=== PATIENT | male | born 1955 | race Two or more races ===

== ENCOUNTER 2017-01-24 12:23 | Inpatient (IN) | payer BC ==
[~2017-01-24] VITALS: Ht 162.6 cm; Wt 71.3 kg
[2017-01-24 13:04] LABS: BASO # 0.1 x10^3/uL (0.0-0.2); BASO % 2 % (0-3); EOS # 0.1 x10^3/uL (0.0-0.7); EOS % 2 % (0-3); HEMATOCRIT 30.5 % (39.0-53.0); HEMOGLOBIN 10.2 g/dL (13.0-17.5); LYMPH # 0.8 x10^3/uL (1.0-4.8); LYMPH % 28 % (24-48); MEAN CORPUSCULAR HEMOGLOBIN 33 pg (25-35); MEAN CORPUSCULAR HGB CONC 33 g/dL (31-37); MEAN CORPUSCULAR VOLUME 98 fL (79-100); MONO # 0.4 x10^3/uL (0.0-1.1); MONO % 14 % (0-9); NEUT # 1.6 x10^3uL (1.8-7.7); NEUT % 54 % (31-73); PLATELET COUNT 33 x10^3/uL (140-400); RED BLOOD COUNT 3.11 x10^6/uL (4.30-5.70); RED CELL DISTRIBUTION WIDTH 21.1 % (11.5-14.5); WHITE BLOOD COUNT 2.9 x10^3/uL (4.0-11.0)
[2017-01-24 13:14] LABS: ALBUMIN 2.4 g/dL (3.4-5.0); ALBUMIN/GLOBULIN RATIO 0.4 (1.0-1.7); CALCIUM 7.9 mg/dL (8.5-10.1); CREATININE 0.8 mg/dL (0.7-1.3); GFR 98.6; POTASSIUM 4.1 mmol/L (3.5-5.1); TOTAL BILIRUBIN 2.1 mg/dL (0.2-1.0)
[2017-01-24] MEDS ORDERED: ONDANSETRON PF 4 MG/2 ML VIAL. IV ONE (13:15)
[2017-01-24] MEDS ORDERED: IV DEXTROSE 5% - 0.9 % NACL 500 ML IV ONE (13:15)
[2017-01-24] MEDS ORDERED: THIAMINE 100 MG in IV NORMAL SALINE 50ML 50 ML IV ONE (13:15)
--- NOTE | 2017-01-24 13:40 | RAD ---
CT of the head without contrast, 01/24/2017: History: Altered mental status, confusion, alcoholism There is moderate cerebral atrophy. The ventricles are within normal limits in size. There is no shift of the midline structures. There is no evidence of acute intracranial hemorrhage or mass effect. IMPRESSION: 1. Cerebral atrophy. 2. No acute intracranial abnormality is detected. PQRS Compliance Statement: One or more of the following individualized dose reduction techniques were utilized for this examination: 1. Automated exposure control 2. Adjustment of the mA and/or kV according to patient size 3. Use of iterative reconstruction technique
[2017-01-24 13:56] LABS: BILIRUBIN,URINE SMALL (NEG); CLARITY,URINE CLOUDY; COLOR,URINE AMBER; GLUCOSE,URINE NEG (NEG); UROBILINOGEN,URINE 8 mg/dL (0.2 mg/dL)
[2017-01-24 13:57] LABS: BACTERIA,URINE MOD /HPF (0-FEW); NITRITE,URINE POS (NEG); SQUAMOUS EPITHELIAL CELL,UR FEW /LPF
[2017-01-24] MEDS ORDERED: PROP40TA PO (13:58)
[2017-01-24] MEDS ORDERED: INSU100V13 SQ (13:58)
[2017-01-24] MEDS ORDERED: INSU100C4 SQ (13:58)
[2017-01-24 14:09] LABS: PLT ESTIMATE DECREASED (ADEQUATE)
[2017-01-24 14:10] LABS: ANISOCYTOSIS SLIGHT; HYPOCHROMIA SLIGHT; MICROCYTOSIS SLIGHT; SCHISTOCYTES OCC; SPHEROCYTES FEW; TARGET CELLS OCC; TEAR DROP CELLS OCC
[2017-01-24] MEDS ORDERED: MVI, ADULT NO.4 WITH VIT K 10 ML, FOLIC ACID SYRINGE for ER 1 MG, THIAMINE 100 MG in IV... IV ONE ×4 (14:15)
[2017-01-24] MEDS ORDERED: ESOM20CA PO (14:55)
[2017-01-24 15:03] VITALS: BP 163/80
[2017-01-24 15:04] VITALS: BP 163/80
[2017-01-24] MEDS ORDERED: CLONIDINE HCL 0.1 MG TABLET PO PRN (15:30)
[2017-01-24] MEDS ORDERED: LORAZEPAM 2 MG/ML VIAL IV PRN ×2 (15:30)
[2017-01-24] MEDS ORDERED: DIPHENHYDRAMINE 50 MG/ML VIAL IVP PRN (15:30)
[2017-01-24] MEDS ORDERED: PANTOPRAZOLE IV PUSH 40 MG VIAL. IVP SCH (15:45)
[2017-01-24] MEDS ORDERED: CEFTRIAXONE SODIUM 1 GM in IV NORMAL SALINE 50ML 50 ML IV SCH (16:00)
--- NOTE | 2017-01-24 16:17 | ED.ADGEN ---
Past History Past Medical History: Alcoholism, Diabetes, Hypertension, Liver Disease, Pancreatitis, Other Past Surgical History: Other Alcohol Use: Heavy Drug Use: None Adult General Chief Complaint Chief Complaint intermittent altered mental status, nausea, vomiting HPI HPI Patient is a 61 year old male who presents with son for intermittently not acting like him self. Pt has had anger outburst and using profanity, which is not like him. He is a near-daily drinker, drinking 2 bottles a wine a day, last drinking was yesterday. Pt has known cirrhosis of the liver. No known falls or trauma. Unsure if pt's color is more yellow than normal. Pt was seen in PCP office earlier today and directed to the ED. Pt's had nausea and vomiting today, no bloody or bilious vomiting. Denies dark/tarry stools. Denies abdominal pain, cough or shortness of breath. Review of Systems Review of Systems Constitutional: Denies fever or chills [] Eyes: Denies change in visual acuity, redness, or eye pain [] HENT: Denies nasal congestion or sore throat [] Respiratory: Denies cough or shortness of breath [] Cardiovascular: Denies chest pain GI: per hpi : Denies dysuria , reports difficulty completing stream Musculoskeletal: Denies back pain or joint pain [] Integument: Denies rash or skin lesions [] Neurologic: Denies headache, focal weakness or sensory changes [] Current Medications Current Medications Current Medications Medications (Trade) Dose Ordered Sig/Tone Start Time Stop Time Status Last Admin Dose Admin Dextrose/Sodium Chloride 500 ml @ 0 mls/hr 1X ONCE 01/24/17 13:15 01/24/17 13:16 DC 01/24/17 13:12 500 MLS/HR Ondansetron HCl (Zofran) 4 mg 1X ONCE 01/24/17 13:15 01/24/17 13:16 DC 01/24/17 13:11 4 MG Thiamine HCl/ Sodium Chloride (Iv Sodium Chloride 0.9% 50ml) 51 ml @ 102 mls/hr 1X ONCE 01/24/17 13:15 01/24/17 13:44 DC 01/24/17 13:00 102 MLS/HR Allergies Allergies Allergies Coded Allergies Type Severity Reaction Last Updated Verified No Known Drug Allergies 01/24/17 No Physical Exam Physical Exam Constitutional: Well developed, well nourished, no acute distress, non-toxic appearance. appears slightly jaundiced HENT: Normocephalic, atraumatic, bilateral external ears normal, oropharynx moist, no oral exudates, nose normal. [] Eyes: PERRLA, EOMI, scleral icteric, no discharge. [] Neck: Normal range of motion, no tenderness, supple, no stridor. [] Cardiovascular:Heart rate regular with regular rhythm, no murmur [] Lungs & Thorax: Bilateral breath sounds clear to auscultation, no wheeze or crackles Abdomen: Bowel sounds normal, soft, no tenderness Skin: Warm, dry, no erythema, no rash. [] Back: No tenderness, no CVA tenderness. [] Extremities: No tenderness, no cyanosis, no clubbing, ROM intact, no edema. [] Neurologic: Alert and oriented X 3, normal motor function, normal sensory function, no focal deficits noted. [] Current Patient Data Vital Signs Vital Signs Date Time Temp Pulse Resp B/P Pulse Ox O2 Delivery O2 Flow Rate FiO2 01/24/17 12:25 98.0 70 18 97 Room Air Lab Results Laboratory Tests Test 01/24/17 12:43 01/24/17 13:36 White Blood Count 2.9x10^3/uL (4.0-11.0) L Red Blood Count 3.11x10^6/uL (4.30-5.70) L Hemoglobin 10.2g/dL (13.0-17.5) L Hematocrit 30.5% (39.0-53.0) L Mean Corpuscular Volume 98fL (79-100) Mean Corpuscular Hemoglobin 33pg (25-35) Mean Corpuscular Hemoglobin Concent 33g/dL (31-37) Red Cell Distribution Width 21.1% (11.5-14.5) H Platelet Count 33x10^3/uL (140-400) L Neutrophils (%) (Auto) 54% (31-73) Lymphocytes (%) (Auto) 28% (24-48) Monocytes (%) (Auto) 14% (0-9) H Eosinophils (%) (Auto) 2% (0-3) Basophils (%) (Auto) 2% (0-3) Neutrophils # (Auto) 1.6x10^3uL (1.8-7.7) L Lymphocytes # (Auto) 0.8x10^3/uL (1.0-4.8) L Monocytes # (Auto) 0.4x10^3/uL (0.0-1.1) Eosinophils # (Auto) 0.1x10^3/uL (0.0-0.7) Basophils # (Auto) 0.1x10^3/uL (0.0-0.2) Platelet Estimate Decreased (ADEQUATE) Hypochromasia Slight Anisocytosis Slight Microcytosis Slight Spherocytes Few Target Cells Occ Tear Drop Cells Occ Schistocytes Occ Sodium Level 140mmol/L (136-145) Potassium Level 4.1mmol/L (3.5-5.1) Chloride Level 105mmol/L (98-107) Carbon Dioxide Level 27mmol/L (21-32) Anion Gap 8 (6-14) Blood Urea Nitrogen 11mg/dL (8-26) Creatinine 0.8mg/dL (0.7-1.3) Estimated GFR (Cockcroft-Gault) 98.6 BUN/Creatinine Ratio 14 (6-20) Glucose Level 189mg/dL (70-99) H Calcium Level 7.9mg/dL (8.5-10.1) L Total Bilirubin 2.1mg/dL (0.2-1.0) H Aspartate Amino Transferase (AST) 62U/L (15-37) H Alanine Aminotransferase (ALT) 31U/L (16-63) Alkaline Phosphatase 249U/L (46-116) H Ammonia 80mcmol/L (11-34) H Total Protein 8.0g/dL (6.4-8.2) Albumin 2.4g/dL (3.4-5.0) L Albumin/Globulin Ratio 0.4 (1.0-1.7) L Urine Collection Type Unknown Urine Color [place] Urine Clarity Cloudy Urine pH 7.0 Urine Specific [place] 1.020 Urine Protein 100 mg/dl (NEG-TRACE) Urine Glucose (UA) Negmg/dL (NEG) Urine Ketones (Stick) Tracemg/dL (NEG) Urine Blood Mod (NEG) Urine Nitrite Pos (NEG) Urine Bilirubin Small (NEG) Urine Urobilinogen Dipstick 8mg/dL (0.2 mg/dL) Urine Leukocyte Esterase Trace (NEG) Urine RBC 1-2/HPF (0-2) Urine WBC 5-10/HPF (0-4) Urine Squamous Epithelial Cells Few/LPF Urine Bacteria Mod/HPF (0-FEW) EKG EKG [] Radiology/Procedures Radiology/Procedures CT head: CT of the head without contrast, 01/24/2017: History: Altered mental status, confusion, alcoholism There is moderate cerebral atrophy. The ventricles are within normal limits in size. There is no shift of the midline structures. There is no evidence of acute intracranial hemorrhage or mass effect. IMPRESSION: 1. Cerebral atrophy. 2. No acute intracranial abnormality is detected. DICTATED AND SIGNED BY: KIARRA MARTINS MD DATE: 01/24/17 [id number] CC: JONEL TANNER MD ~ Course & Med Decision Making Course & Med Decision Making Pertinent Labs and Imaging studies reviewed. (See chart for details) Pt given d5NS, zofran, Thiamine IV. Pt's ammonia level elevated, CT head negative. Pt is not on lactulose at this time. Will admit for ongoing treatment and monitor for withdrawal. Pt accepted to tele by Dr. Her Final Impression Final Impression Hepatic encephalopathy Liver disease Alcohol abuse[] Problems: Dragon Disclaimer Dragon Disclaimer This electronic medical record was generated, in whole or in part, using a voice recognition dictation system. JONEL TANNER MD Jan 24, 2017 16:17
[2017-01-24] MEDS ORDERED: DEXTROSE 50% 25 GM / 50ML DISP.SYRIN. IV PRN (17:30)
[2017-01-24] MEDS: LACTULOSE 20 GM/30 ML SOLUTION. PO SCH (17:48)
[2017-01-24 18:52] VITALS: BP 165/79
[2017-01-24] MEDS: PROPRANOLOL 20 MG TABLET. PO SCH (20:18)
[2017-01-24] MEDS: INSULIN ASPART 300 UNITS/3 ML INSULN.PEN SQ SCH (20:20)
[2017-01-24 21:46] LABS: BILIRUBIN,URINE NEG (NEG); CLARITY,URINE CLOUDY; COLOR,URINE AMBER; GLUCOSE,URINE NEG (NEG); NITRITE,URINE POS (NEG); UROBILINOGEN,URINE 4 mg/dL (0.2 mg/dL)
[2017-01-24 22:04] LABS: BACTERIA,URINE 0 /HPF (0-FEW); RBC,URINE >40 /HPF (0-2); SQUAMOUS EPITHELIAL CELL,UR FEW /LPF
[2017-01-24 22:27] VITALS: BP 145/70
--- NOTE | 2017-01-24 22:51 | ACF ---
Admission Criteria Forms LIVER DISEASE COMPLICATIONS Clinical Indications for Admission to Inpatient Care (Place 'X' for any and all applicable criteria): Admission is indicated for patient with ANY ONE of the following(1)(2)(3)(4): [ ]I. Inpatient admission required rather than observation care because of ANY ONE of the following: [ ]a) Hemodynamic instability that is severe or persistent [ ]b) Severe electrolyte abnormalities requiring inpatient care [ ]c) Respiratory compromise that is severe or persistent [ ]d) Coagulation abnormal that is severe or persistent [ ]e) Severe pain requiring acute inpatient management [ ]f) Renal insufficiency that is severe or worsening [ ]g) Metabolic abnormalities (e.g., vomiting, hypoglycemia, acidosis) that are severe or persistent [ ]h) Hypovolemia or hypervolemia that is severe or persistent [ ]i) Absent bowel sounds with complete ileus(2) [ ]j) Signs of intestinal obstruction or peritonitis[A] [ ]k) IV fluid to replace significant ongoing losses (>3 L/m2 per day) [ ]l) Continuous IV infusion of anticoagulation, platelet inhibitor, vasoactive, or antiarrhythmic medication [ ]m) Percutaneous or open drainage (e.g., abscess, biliary tract) procedures [ ]n) Parenteral nutrition regimen that must be implemented on inpatient basis [ ]o) Other condition treatment or monitoring requiring inpatient admission [ ]II. Infected hepatic hydrothorax (eg, empyema) [ ]III. Hepatorenal syndrome (eg, elevated. creatinine with adequate volume status and negative evaluation for other cause)(8) [ ]IV. Spontaneous bacterial peritonitis [ ]V. Suspected infected ascites as indicated by ANY ONE of the following: [ ]a) Temp >100 degrees F (37.8 C ) [ ]b) High WBC count [ ]c) Abdominal pain or tenderness not relieved by paracentesis [X]. New-onset or worsening hepatic encephalopathy(7) [ ]VII. Suspected fulminant hepatic failure (e.g., acute coagulopathy with hepatic encephalopathy or acute elevation of hepatic transaminases to more than 15 times baseline)(4) [ ]VIII. Acute hepatitis (e.g., ALT and AST at least 3 times baseline) with coagulopathy or severe jaundice as indicated by ANY ONE of the following(9)(10): [ ]a) Bilirubin >20 mg/dL (342 moles/L)(11) [ ]b) Acute elevation of PT to >50% above normal or INR >1.5 [ ] IX. Treatment of injury from hepatotoxin (e.g., acetaminophen) that requires inpatient monitoring [ ] X. Acute fatty liver of Extended stay beyond goal length of stay may be needed for(3)(7): [ ]a) Hepatorenal syndrome [ ]b) Severe or persistent hepatic encephalopathy [ ]c) Renal failure due to other causes associated with cirrhosis (e.g., hypovolemia) [ ]d) Severe or persistent coagulation abnormalities [ ]e) Refractory ascites, volume, or electrolyte abnormality [ ]f) Severe or persistent gastroesophageal bleeding [ ]g) Severe infectious or hepatotoxin-induced hepatitis (eg, acetaminophen) [ ]h) Hemodynamic instability that is severe or persistent The original [facility] content created by [employer] has been revised. The portions of the content which have been revised are identified through the use of italic text or in bold, and [facility] has neither reviewed nor approved the modified material. All other unmodified content is copyright [facility] [employer]. Please see references footnoted in the original [employer] [facility] [facility] edition 2016 Admission Criteria Met?: Yes ANN GONZALEZ Jan 24, 2017 22:51
[2017-01-25 04:20] VITALS: BP 160/81
[2017-01-25 06:07] VITALS: BP 153/97
[2017-01-25 06:22] LABS: BASO % 1 % (0-3); EOS # 0.1 x10^3/uL (0.0-0.7); EOS % 5 % (0-3); HEMATOCRIT 26.2 % (39.0-53.0); HEMOGLOBIN 8.8 g/dL (13.0-17.5); LYMPH # 0.9 x10^3/uL (1.0-4.8); LYMPH % 35 % (24-48); MEAN CORPUSCULAR HEMOGLOBIN 33 pg (25-35); MEAN CORPUSCULAR HGB CONC 34 g/dL (31-37); MEAN CORPUSCULAR VOLUME 99 fL (79-100); MONO # 0.4 x10^3/uL (0.0-1.1); MONO % 14 % (0-9); NEUT # 1.1 x10^3uL (1.8-7.7); NEUT % 44 % (31-73); RED BLOOD COUNT 2.64 x10^6/uL (4.30-5.70); RED CELL DISTRIBUTION WIDTH 20.9 % (11.5-14.5); WHITE BLOOD COUNT 2.6 x10^3/uL (4.0-11.0)
[2017-01-25 06:25] LABS: PLATELET COUNT 20 x10^3/uL (140-400)
[2017-01-25 06:30] LABS: ALBUMIN 2.1 g/dL (3.4-5.0); ALBUMIN/GLOBULIN RATIO 0.4 (1.0-1.7); CALCIUM 7.2 mg/dL (8.5-10.1); CREATININE 0.7 mg/dL (0.7-1.3); MAGNESIUM 1.3 mg/dL (1.8-2.4); TOTAL PROTEIN 6.9 g/dL (6.4-8.2)
[2017-01-25] MEDS ORDERED: PANTOPRAZOLE 40 MG TABLET. PO SCH (07:30)
[2017-01-25] MEDS ORDERED: MAGNESIUM SULFATE 2GM 50 ML IV ONE (07:30)
[2017-01-25] MEDS: INSULIN ASPART 300 UNITS/3 ML INSULN.PEN SQ SCH (07:30)
[2017-01-25] MEDS: PROPRANOLOL 20 MG TABLET. PO SCH (08:29)
[2017-01-25] MEDS: LACTULOSE 20 GM/30 ML SOLUTION. PO SCH (08:30)
[2017-01-25] MEDS ORDERED: ENAL5TAB PO (08:41)
[2017-01-25] MEDS ORDERED: FOLIC ACID 1 MG TABLET PO SCH (09:00)
[2017-01-25] MEDS ORDERED: MVI, ADULT NO.4 WITH VIT K 10 ML, THIAMINE 100 MG, FOLIC ACID 1 MG in IV NORMAL SALINE ... IV SCH ×4 (09:00)
[2017-01-25] MEDS ORDERED: INSULIN DETEMIR 300 UNITS/3 ML INSULN.PEN. SQ SCH (09:00)
[2017-01-25] MEDS ORDERED: INSU100I17 SQ (09:29)
[2017-01-25] MEDS ORDERED: FOLI1TAB16 PO (09:29)
[2017-01-25] MEDS ORDERED: CEFT1FRO2 IV (09:29)
[2017-01-25] MEDS ORDERED: CLON0.1T12 PO (09:29)
[2017-01-25] MEDS ORDERED: LACT20SO PO (09:29)
[2017-01-25] MEDS ORDERED: DIPH50VI IVP (09:29)
[2017-01-25] MEDS ORDERED: THIA100T8 PO (09:30)
--- NOTE | 2017-01-25 10:05 | SSS ---
ADMIT DATE: 01/25/2017 SHORT STAY SUMMARY DISPOSITION: Transferred to a higher level of facility, facility is pending, but most likely [facility] due to insurance reasons. HISTORY OF PRESENT ILLNESS: This is a 61-year-old male, who was admitted through the Emergency Room yesterday evening for altered mental status with elevated pneumonia, some confusion, cirrhosis of the liver, malnutrition and thrombocytopenia. He had complained of nausea and vomiting, but did have none during his hospitalization. PAST MEDICAL HISTORY: Significant for longstanding alcoholism approximately two bottles of wine a day for years and now was about drinking a bottle of wine a week. The other medical problems include this is not the way he is and was having some memory issues since . Other medical problems include past medical history, chronic alcoholism, diabetes, hypertension, cirrhosis of the liver, and pancreatitis. The patient had an appointment to have a bone marrow biopsy last Monday, but did not make it to his appointment, not known the 100% whether is leukopenia as well as thrombocytopenia is due to alcoholism. PAST SURGICAL HISTORY: Unknown. FAMILY HISTORY: Very strong family history of alcoholism in most of his family members. REVIEW OF SYSTEMS: Positive for memory issues, altered personality with increased anger and rage. No physical violence. Denies any weight loss. Positive for memory issues. Positive fatigue. No sore throat. No abdominal pain, no urine issues. Tingling in the feet and some ringing in his ears. OBJECTIVE: VITAL SIGNS: Blood pressure 163/80, pulse 63, temperature 98.2, respirations 18, and pulse ox 98% on room air. Height 64 inches, weight 157.13 pounds. GENERAL: A 61-year-old in no acute distress. HEENT: Hearing is slightly impaired. Eyes, mildly icteric. Nose is patent. Throat clear. He has some tremors of the tongue. NECK: Supple. LUNGS: Clear. CARDIOVASCULAR: Regular rhythm and rate. ABDOMEN: Soft, nontender, did not appear to have enlarged liver. Bowel sounds are positive. EXTREMITIES: With 2+ ankle and foot edema. NEUROLOGIC: He has some fine tremor of the hands. LABORATORY DATA: Magnesium is 1.3, glucose is 127, albumin is 2.1, alkaline phosphatase elevated at 172. Urinalysis, he has 11-20 white cells, positive nitrites, also moderate blood greater than 40 red cells. This was not a specimen. CBC yesterday with white blood cell count 2.9, hemoglobin 10.2, hematocrit 30.5 with 33,000 platelets. Now his hemoglobin is 8.8, hematocrit 26.2 and platelet count 20,000 that is after IV fluids. ASSESSMENT: 1. Alcoholic liver disease. 2. Leukopenia. 3. Thrombocytopenia, questionable etiology. 4. Normochromic normocytic anemia. 5. Hematuria. 6. Urinary tract infection, cultures pending. 7. Type 2 diabetes. 8. Hypomagnesemia. 9. Elevated alkaline phosphatase. 10. Severe protein malnutrition. 11. Chronic alcohol use. 12. Hyperammonemia with a level of 80. PLAN: The patient was started on lactulose. He received banana bag, alcohol withdrawal protocol. He is being started on ceftriaxone for his UTI. Because of the drop in platelets and hematuria and those specialties not available here at [facility] and because his insurance, awaiting transfer to [facility] under Dr. Lilo Arreaga. SHANE VERA DO DR: EMIGDIO/lottie JOB#: [id number] / [id number] Lilo Mathews DO
[2017-01-25 10:36] VITALS: BP 153/86
[2017-01-26] MEDS ORDERED: LISINOPRIL 10 MG TABLET PO SCH (10:00)
== END 2017-01-25 10:50 | disposition short-term general hospital (02) | DRG 432 ==
LOC: ER 12:23 → 1 SOUTH 13:52
PROVIDERS: ADMIT Family Medicine; ATTEND Family Medicine
DX: K70.9 Alcoholic liver disease, unspecified (principal); E43 Unspecified severe protein-calorie malnutrition; N39.0 Urinary tract infection, site not specified; K72.90 Hepatic failure, unspecified without coma; D64.9 Anemia, unspecified; D69.6 Thrombocytopenia, unspecified; D72.819 Decreased white blood cell count, unspecified; E11.9 Type 2 diabetes mellitus without complications; E83.42 Hypomagnesemia; I10 Essential (primary) hypertension; R31.9 Hematuria, unspecified; D69.59 Other secondary thrombocytopenia; F10.20 Alcohol dependence, uncomplicated; Z68.27 Body mass index [BMI] 27.0-27.9, adult; Z81.1 Family history of alcohol abuse and dependence
CPT/HCPCS: 36415; 70450; 80053; 81001; 82140; 82306; 82607; 82947; 83735; 85008; 85027; 87086; 96365; 96367; 96368; 96375; C9113; J0696; J1815; J2405; J3475; J7042; 99285-25